=== PATIENT | female | born 1955 | race Caucasian/White ===

== ENCOUNTER → 2017-05-14 | Outpatient (CLI) | payer BC ==
[~2017-05-14] MED LIST: LEVAQUIN 2250 MG/TAB PO; ROXICODONE 55 MG/TAB PO; ZOFRAN 4MG T4 MG/TAB PO
== END ==
LOC: MC.RAD 13:39
DX: Z12.31 Encounter for screening mammogram for malignant neoplasm of breast (principal)

== ENCOUNTER → 2018-09-25 | Outpatient (CLI) | payer BC | LOC: MC.RAD 09:46 | DX: Z12.31 Encounter for screening mammogram for malignant neoplasm of breast (principal); N63.20 Unspecified lump in the left breast, unspecified quadrant ==

== ENCOUNTER 2019-10-29 17:54 | Emergency (ER) | payer BC ==
[~2019-10-29] VITALS: Ht 157.5 cm; Wt 76.4 kg
[2019-10-29 18:04] VITALS: BP 130/89; PULSE 81; TEMP 98.1
[2019-10-30] MEDS ORDERED: NORCO 325 MG-51 TAB PO (16:44)
== END 2019-10-29 18:33 | disposition left against medical advice (07) ==
LOC: COL.ER 17:54
DX: R07.9 Chest pain, unspecified (principal)

== ENCOUNTER 2019-10-30 10:38 | Observation (INO) | payer BC ==
[~2019-10-30] VITALS: Ht 157.5 cm; Wt 76.4 kg
[2019-10-30] VITALS (8 sets, daily range): BP systolic 97–120; BP diastolic 46–65; PULSE 87–107; TEMP 98.1
[2019-10-30 11:37] LABS: COLLECTION METHOD CLEAN CATCH
[2019-10-30 12:00] LABS: ALANINE AMINOTRANSFERASE 36 U/L (4-34); ALBUMIN 4.3 gm/dL (3.5-5.0); ALKALINE PHOSPHATASE 85 U/L (50-136); ANION GAP 10 mmol/L (7-16); AST,SGOT 61 U/L (15-37); BLOOD UREA NITROGEN 12 mg/dL (7-17); C-REACTIVE PROTEIN 2.2 mg/dL (0.0-0.9); CALCIUM 9.3 mg/dL (8.4-10.2); CARBON DIOXIDE 24 mmol/L (22-30); CHLORIDE 104 mmol/L (98-107); GLUCOSE 130 mg/dL (74-106); LIPASE 42 U/L (23-300); SODIUM 138 mmol/L (137-145); TOTAL PROTEIN 8.1 gm/dL (6.4-8.2)
[2019-10-30 12:02] LABS: URINE APPEARANCE Clear; URINE COLOR Yellow
[2019-10-30 12:03] LABS: PH 6 (5-8); URINE PROTEIN(semi-quant) 1+ (NEGATIVE)
[2019-10-30 12:04] LABS: URINE BILIRUBIN Negative (NEGATIVE); URINE BLOOD 2+ (NEGATIVE); URINE GLUCOSE Negative (NEGATIVE); URINE KETONE Trace (NEGATIVE); URINE LEUKOCYTE ESTERASE Negative (NEGATIVE); URINE NITRATE Negative (NEGATIVE); URINE UROBILINOGEN Negative (NEGATIVE)
[2019-10-30 12:05] LABS: SQUAMOUS EPITHELIAL 0-2 /hpf; URINE BACTERIA Rare /hpf; URINE RBC 0-2 /hpf
[2019-10-30 12:09] LABS: TROPONIN-I < 0.012 ng/mL (0.000-0.035)
[2019-10-30 12:18] LABS: BASO % 0.4 % (0.0-2.0); EOS # 0.1 (0.0-0.7); EOS % 0.8 % (0-4.0); GRAN # 5.6 (1.4-6.5); GRAN % 70.6 % (42.2-75.2); HEMATOCRIT 43.7 % (37.0-47.0); HEMOGLOBIN 14.5 g/dl (12.5-16.0); LYMPH # 1.4 (1.2-3.4); LYMPH % 18.1 % (20.0-51.0); MEAN CELL VOLUME 94 fl (80.0-100.0); MEAN CORPUSCULAR HEMOGLOBIN 31 pg (27.0-31.0); MEAN CORPUSCULAR HGB CONC 33 g/dl (33.0-37.0); MEAN PLATELET VOLUME 9.3 fl (7.4-10.4); MONO # 0.7 (0.1-0.6); MONO % 9.3 % (1.7-9.3); PLATELET COUNT 143 K/mm3 (130-400); RED BLOOD COUNT 4.65 M/mm3 (4.10-5.30); REDCELL DISTRIBUTION WIDTH-CV 12.1 % (11.5-14.5)
[2019-10-30] MEDS ORDERED: NORCO 325 MG-51 TAB PO (16:44)
--- NOTE | 2019-10-30 17:05 | NUR ---
PATIENT ADMITED INTO ROOM 348 POST OP LAP JONAS. VSS. NO C/O PAIN. ABD LAP SITES X3 ARE CD&I WITH BANDAIDS. ABD IS SL DISTENDED, SOFT AND WITH POSITIVE BOWL SOUNDS. NO C/O N/V. IV FLUIDS INFUSING VIA PUMP INTO RIGHT AC. LIQUIDS AT BEDSIDE. HEAD TO TOE ASSESSMENT WNL. FAMILY AT BEDSIDE.
[2019-10-31 00:18] VITALS: BP 105/59; PULSE 84; TEMP 98
[2019-10-31 04:36] VITALS: BP 103/55; PULSE 75; TEMP 98.3
--- NOTE | 2019-10-31 06:04 | NUR ---
Patient resting well throughout the night. Complains of pain to right upper quadrant, but "nothing like the pain before surgery". Education provided on possibility of gas pain and how to reduce this pain. PRN pain medication administered per doctor order. Not effective for the pain to RUQ. Again taught patient about gas pain post-surgery. Patient states she is going to get up and walk the halls this morning. Lap sites CDI covered with bandaids. Will continue to monitor.
[2019-10-31 07:52] VITALS: BP 108/51; PULSE 92; TEMP 97.5
--- NOTE | 2019-10-31 10:24 | NUR ---
PATIENT SITTING UP IN BED DRESSED IN STREET CLOTHES WITH FAMILY AT THE BEDSIDE. PATIENT BOWEL SOUNDS ACTIVE ALL FOUR QUADRANTS. ABDOMINAL LAP SITES X3 DRESSED WITH BANDAIDS AND ARE CD&I. PATIENT TOLERATING DIET. PATIENT RATING HER PAIN A 3/10 ON A 0-10 SCALE. PATIENT DENIES THE NEED FOR PAIN MEDICATION AT THIS TIME. RIGHT AC INT DISCONTINUED PER PENDING DISCHARGE. TIP INTACT. PATIENT TOLERATED WELL. NO OTHER NEEDS AT THIS TIME.
--- NOTE | 2019-10-31 10:32 | NUR ---
DISCHARGE INSTRUCTIONS REVIEWED WITH PATIENT. ALL QUESTIONS ANSWERED. PATIENT PERSONAL BELONGINGS GATHERED. PATIENT TAKEN TO PERSONAL VEHICLE VIA WHEELCHAIR BY SURGICAL STAFF. PATIENT DISCHARGED.
== END 2019-10-31 10:32 | disposition home or self-care (01) ==
LOC: COL.ER 10:38 → SURG 13:23
PROVIDERS: Emergency Medicine; ADMIT Surgery
DX: K80.11 Calculus of gallbladder with chronic cholecystitis with obstruction (principal); K82.1 Hydrops of gallbladder; Z85.828 Personal history of other malignant neoplasm of skin
CPT/HCPCS: C9113; G0378; G0379; J0690; J1100; J1885; J2270; J2405; J2543; J2704; J2765; J3010; J7030; Q9967

== ENCOUNTER 2020-05-26 17:06 | Emergency (ER) | payer OTHER, BC ==
[~2020-05-26] VITALS: Ht 157.5 cm; Wt 79.5 kg
[~2020-05-26 17:06] MED LIST changes: +NORCO 325 MG-51 TAB PO
[2020-05-26 17:40] VITALS: BP 184/81; TEMP 98.2
[2020-05-26] MEDS ORDERED: NORCO 325 MG-51 TAB PO (21:33)
[2020-05-26 22:59] VITALS: PULSE 98
== END 2020-05-26 22:58 | disposition home or self-care (01) ==
LOC: COL.ER 17:06
DX: S52.122A Displaced fracture of head of left radius, initial encounter for closed fracture (principal); S52.132A Displaced fracture of neck of left radius, initial encounter for closed fracture; W01.0XXA Fall on same level from slipping, tripping and stumbling without subsequent striking against object, initial encounter; Y92.59 Other trade areas as the place of occurrence of the external cause; Y99.0 Civilian activity done for income or pay
CPT/HCPCS: Q4050

== ENCOUNTER → 2021-01-24 | Outpatient (CLI) | payer BC | LOC: COL.RAD 08:41 | DX: K37 Unspecified appendicitis (principal); Z90.49 Acquired absence of other specified parts of digestive tract | CPT/HCPCS: Q9967 ==

== ENCOUNTER → 2021-08-22 | Outpatient (CLI) | payer BC | LOC: MC.RAD 07:23 | DX: Z12.31 Encounter for screening mammogram for malignant neoplasm of breast (principal) ==